=== PATIENT | female | born 1975 | race African-American/Black ===

== ENCOUNTER 2016-10-05 08:25 | Emergency (ER) | payer MEDICAID ==
[~2016-10-05] VITALS: Ht 154.9 cm; Wt 82.0 kg
[~2016-10-05 08:25] MED LIST: ALBU2.5V13 NEB; NITR0.4T3 SL
[2016-10-05] MEDS ORDERED: SODIUM CHLORIDE 0.9% 1,000 ML IV ONE (09:00)
[2016-10-05 09:30] LABS: BASOPHILS % 0.4 % (0.0-2.0); EOSINOPHILS % 2.1 % (0.0-5.0); HEMATOCRIT. 32.9 % (36.0-48.0); HEMOGLOBIN. 10.9 g/dL (12.0-16.0); LYMPHOCYTES % 15.6 % (20.0-50.0); MEAN CORPUSCULAR HEMOGLOBIN 23.1 pg (28.0-32.0); MEAN PLATELET VOLUME 8.6 fl (7.4-10.4); MONOCYTES % 7.3 % (2.0-8.0); NEUTROPHILS % 74.6 % (40.0-76.0); PLATELET 281 x1000/uL (130-400); RED CELL DISTRIBUTION WIDTH 29.4 % (11.6-14.6)
[2016-10-05 09:36] LABS: CHLORIDE 103 mEq/L (98-107)
[2016-10-05 09:40] LABS: PARTIAL THROMBOPLASTIN TIME 26.6 sec (24.0-34.0); PROTHROMBIN TIME 10.7 sec
[2016-10-05 09:46] LABS: CARBON DIOXIDE 26 mEq/L (21-32)
[2016-10-05 10:05] LABS: PLATELET ESTIMATE NORMAL
[2016-10-05 10:16] LABS: HCG SCREEN NEGATIVE
[2016-10-05 10:45] VITALS: BP 125/63
== END 2016-10-05 11:01 | disposition home or self-care (01) ==
LOC: ER 09:59
DX: R53.83 Other fatigue (principal); R42 Dizziness and giddiness; Z79.899 Other long term (current) drug therapy; Z88.5 Allergy status to narcotic agent
CPT/HCPCS: 36415; 80053; 84703; 85025; 85610; 85730; 86850; 86900; 86901; 93005; 99285; J7030; Z7610

== ENCOUNTER 2023-09-04 14:12 | Emergency (ER) | payer MEDICAID ==
[~2023-09-04] VITALS: Ht 154.9 cm; Wt 82.0 kg
[~2023-09-04 14:12] MED LIST changes: -NITR0.4T3 SL; +NITR0.4T49 SL
[2023-09-04 14:19] VITALS: O2SAT 99
[2023-09-04] MEDS: ASPIRIN 325MG TABLET PO ONE (15:00)
[2023-09-04 15:09] LABS: BASOPHILS % 0.6 % (0.0-2.0); EOSINOPHILS % 2.6 % (0.0-5.0); HEMATOCRIT. 35.7 % (36.0-48.0); HEMOGLOBIN. 11.9 g/dL (12.0-16.0); MEAN CORPUSCULAR HEMOGLOBIN 27.2 pg (28.0-32.0); MEAN CORPUSCULAR HGB CONC 33.2 g/dL (31.0-37.0); MEAN CORPUSCULAR VOLUME 81.9 fL (81.0-99.0); MEAN PLATELET VOLUME 7.4 fl (7.4-10.4); MONOCYTES % 6.8 % (2.0-8.0); PLATELET 215 x1000/uL (130-400); RED BLOOD CELL COUNT 4.36 mill/uL (4.2-5.4); WHITE BLOOD COUNT 5.9 x1000/uL (4.5-11.0)
[2023-09-04 15:18] LABS: CHLORIDE 107 mEq/L (98-107); POTASSIUM 3.6 mEq/L (3.5-5.1); SODIUM 139 mEq/L (136-145)
[2023-09-04 15:19] LABS: CARBON DIOXIDE 25 mEq/L (21-32)
[2023-09-04 15:22] LABS: HCG SCREEN NEGATIVE
[2023-09-04 15:24] LABS: CREATININE 0.7 mg/dL (0.6-1.0); GLUCOSE 90 mg/dL (70-105); UREA NITROGEN BLOOD 10 mg/dL (9-23)
[2023-09-04 15:25] LABS: TROPONIN I HIGH SENSITIVITY 6 ng/L (3.0-34)
[2023-09-04 15:26] LABS: ALANINE AMINOTRANSFERASE 12 IU/L (10-49); ALBUMIN 4.4 g/dL (3.2-4.8); ASPARTATE AMINOTRANSFERASE 15 IU/L (<34); BILIRUBIN TOTAL 0.5 mg/dL (0.1-1.0); PROTEIN TOTAL 8.2 g/dL (6.0-8.3)
[2023-09-04] MEDS: ONDANSETRON HCL 4MG/2ML INJ IV STA (15:54)
[2023-09-04] MEDS: SODIUM CHLORIDE 0.9% 1,000 ML IV ONE (15:56)
[2023-09-04] MEDS ORDERED: ONDA4TAB11 PO (17:38)
[2023-09-04] MEDS ORDERED: NAPR500T7 MT (17:38)
[2023-09-04] MEDS: KETOROLAC 15MG/ML VIAL IV ONE (17:54)
[2023-09-04 18:35] VITALS: BP 134/76; PULSE 78; RESP 12; TEMP 98.3
== END 2023-09-04 18:38 | disposition home or self-care (01) ==
LOC: ER 15:24
DX: R42 Dizziness and giddiness (principal); R11.0 Nausea; D64.9 Anemia, unspecified; I20.9 Angina pectoris, unspecified; Z79.899 Other long term (current) drug therapy
CPT/HCPCS: 80053; 84703; 83880; 85025; 84484; 36415; 71045; 82803; 93005; 96361; 96374; 96375; 99285; 82375; J1885; J2405; Z7610 ×2